=== PATIENT | female | born 1960 | race Asian ===

== ENCOUNTER 2017-07-11 12:37 | Day surgery (SDC) | payer BC, OTHER ==
[2017-07-11] MEDS ORDERED: FENTAnyl 50 MCG/ML VIAL (13:44)
[2017-07-11] MEDS ORDERED: MIDAZOLAM 1 MG/ML 2 ML INJ (13:44)
== END 2017-07-11 16:12 | disposition home or self-care (01) ==
LOC: GIL 12:37
DX: K92.1 Melena (principal); K64.8 Other hemorrhoids; I10 Essential (primary) hypertension
CPT/HCPCS: 45378